=== PATIENT | male | born 1950 | race Caucasian/White ===

== ENCOUNTER → 2021-02-19 | Outpatient (CLI) | payer OTHER | LOC: M WUC 14:12 | PROVIDERS: ATTEND Physician Assistant | DX: S30.861A Insect bite (nonvenomous) of abdominal wall, initial encounter (principal); W18.30XA Fall on same level, unspecified, initial encounter; Y92.009 Unspecified place in unspecified non-institutional (private) residence as the place of occurrence of the external cause ==

== ENCOUNTER → 2021-03-19 | Outpatient (REF) | payer MEDICAID, OTHER ==
[2021-03-21 17:08] LABS: Lyme Disease IgG/IgM Antibodie <0.91 ISR (0.00-0.90); Lyme Disease IgM Ab Quantitati <0.80 index (0.00-0.79)
== END ==
LOC: M WUC 15:20
PROVIDERS: ATTEND Physician Assistant
DX: S30.861A Insect bite (nonvenomous) of abdominal wall, initial encounter (principal); W18.30XA Fall on same level, unspecified, initial encounter; Y92.009 Unspecified place in unspecified non-institutional (private) residence as the place of occurrence of the external cause

== ENCOUNTER → 2023-01-22 | Outpatient (CLI) | payer MEDICARE | LOC: M WUC 13:14 | PROVIDERS: ATTEND Physician Assistant | DX: S20.461A Insect bite (nonvenomous) of right back wall of thorax, initial encounter (principal); W18.30XA Fall on same level, unspecified, initial encounter; Y92.009 Unspecified place in unspecified non-institutional (private) residence as the place of occurrence of the external cause ==